=== PATIENT | male | born 1985 | race American Indian/Alaskan Native ===

== ENCOUNTER 2019-09-05 15:53 | Emergency (ER) | payer BC ==
--- NOTE | 2019-09-05 16:13 | Emergency Department Report ---
Blank Doc - Documentation Documentation: 34-year-old male that presents with "feeling weird" with abnormal palpations. This initial assessment/diagnostic orders/clinical plan/treatment(s) is/are subject to change based on patient's health status, clinical progression and re- assessment by fellow clinical providers in the ED. Further treatment and workup at subsequent clinical providers discretion. Patient/guardians urged not to elope from the ED as their condition may be serious if not clinically assessed and managed. Initial orders include: 1- Patient sent to MAIN ED for further evaluation and treatment 2- UA 3- labs 4- EKG
[2019-09-05 16:31] LABS: Basophils # (Auto) 0.1 K/mm3 (0.0-0.1); Basophils % (Auto) 0.8 % (0.0-1.8); Eosinophils # (Auto) 0.1 K/mm3 (0.0-0.4); Hematocrit 47.6 % (35.5-45.6); Hemoglobin 16.7 gm/dl (11.8-15.2); Lymphocytes # (Auto) 2.9 K/mm3 (1.2-5.4); Lymphocytes % (Auto) 42.4 % (13.4-35.0); Mean Corpuscular HGB Conc 35 % (32-34); Mean Corpuscular Volume 92 fl (84-94); Monocytes # (Auto) 0.5 K/mm3 (0.0-0.8); Monocytes % (Auto) 7.9 % (0.0-7.3); Platelet Count 248 K/mm3 (140-440); Red Blood Count 5.16 M/mm3 (3.65-5.03); Red Cell Distribution Width 12.7 % (13.2-15.2)
[2019-09-05] MEDS ORDERED: SODIUM CHLORIDE 0.9% 1000 ML 1,000 ML IV ONE ×2 (16:36→17:18)
[2019-09-05 16:52] LABS: Alanine Aminotransferase 30 units/L (7-56); Albumin 4.9 g/dL (3.9-5); BUN/Creatinine Ratio 14; Blood Urea Nitrogen 14 mg/dL (9-20); Hemolysis Index 27
--- NOTE | 2019-09-05 16:55 | Emergency Department Report ---
<VICKI HU - Last Filed: 09/05/19 16:50> ED Chest Pain HPI - General Chief Complaint: Chest Pain Stated Complaint: CHEST TIGHTNESS Time Seen by Provider: 09/05/19 16:11 Source: patient Mode of arrival: Ambulatory Limitations: No Limitations - History of Present Illness Initial Comments: 34-year-old -[place] male presents to the emergency room for chest tightnes and palpitations 2 hours prior to arrival. Patient reports that he was laying down when he started to have some discomfort. Patient denies any past medical history. Patient denies any pain but states that he does have a headache on the left side of his head but no chest pain just palpitations and chest feels tight. He does admit to some left arm feeling weaker. He denies any nausea vomiting. Admits to vision changes, lightheadedness and dizziness. Patient reports that he smokes hookah but denies any weed that he has smoked. Patient does admit to eating some cookies that maybe laced with THC. Patient does admit to drinking daily tequila after work. Comes in with a blood pressure of 146/92 pulse rate of 135 respirations are 22, 98.0 96% on room air. Onset/Timin -: hour(s) Onset: during rest Pain Location: other (chest tidgtness) Severity scale (0 -10): 6 Quality: tightness Consistency: intermittent Improves With: nothing Worsens With: nothing re: denies: nausea, vomting, diaphoresis, dyspnea, sense of impending doom Other Symptoms: palpitations. denies: cough, fever, syncope, rash, acid taste in mouth, leg swelling, burping, other Treatments Prior to Arrival: none Aspirin use within the Past 7 Days: (0) No - Related Data Previous Rx's Medication Instructions Recorded Last Taken Type metFORMIN [Glucophage] 500 mg PO BID 30 Days #60 tablet 09/05/19 Unknown Rx Allergies Allergy/AdvReac Type Severity Reaction Status Date / Time No Known Allergies Allergy Verified 09/05/19 17:04 Heart Score - HEART Score History: Slightly suspicious EKG: Non-specific Age: < 45 Risk factors: 1-2 risk factors ED Past Medical Hx - Past Medical History Previous Medical History?: No Hx Hypertension: Yes Hx Diabetes: Yes (untreated) - Surgical History Past Surgical History?: No - Social History Smoking Status: Never Smoker Substance Use Type: Alcohol - Medications Home Medications: Home Medications Medication Instructions Recorded Confirmed Last Taken Type metFORMIN [Glucophage] 500 mg PO BID 30 Days #60 tablet 09/05/19 Unknown Rx ED Physical Exam - General Limitations: No Limitations ASHU score - Ashu Score Age > 65: (0) No Aspirin use within the Past 7 Days: (0) No 3 or more CAD Risk Factors: (0) No 2 or more Angina events in past 24 hrs: (0) No Known CAD with more than 50% Stenosis: (0) No Elevated Cardiac Markers: (0) No ST Deviation Greater than 0.5mm: (0) No ASHU Score: 0 ED Medical Decision Making - Lab Data Result diagrams: 09/05/19 16:16 - EKG Data EKG shows normal: sinus rhythm (tachy), axis (normal), QRS complexes (prolonged), ST-T waves (no elevation or inverison) Rate: tachycardia - Radiology Data Radiology results: report reviewed Patient: SHA ROBERTSON MR#: [id number] : 1985 Acct:[id number] Age/Sex: 34 / M ADM Date: 09/05/19 Loc: ED Attending Dr: Ordering Physician: SEYMOUR SHAY NP Date of Service: 09/05/19 Procedure(s): XR chest routine 2V Accession Number(s): [id number] cc: SEYMOUR SHAY NP Fluoro Time In Minutes: CHEST 2 VIEWS INDICATION / CLINICAL INFORMATION: Chest Pain. COMPARISON: None available. FINDINGS: SUPPORT DEVICES: None. HEART / MEDIASTINUM: No significant abnormality. LUNGS / PLEURA: No significant pulmonary or pleural abnormality. No pneumothorax. ADDITIONAL FINDINGS: No significant additional findings. IMPRESSION: 1. No acute finding. Signer Name: Cabrera Pantoja MD Signed: 09/05/2019 4:59 PM Workstation Name: [id number] Transcribed By: TEJ Dictated By: Cabrera Pantoja MD Electronically Authenticated By: Cabrera Pantoja MD Signed Date/Time: 09/05/191658 DD/ 57 TD/TT: - Medical Decision Making 34-year-old -[place] male presents to the emergency room for chest tightnes and palpitations 2 hours prior to arrival. Patient reports that he was laying down when he started to have some discomfort. Patient denies any past medical history. Patient denies any pain but states that he does have a h eadache on the left side of his head but no chest pain just palpitations and chest feels tight. He does admit to some left arm feeling weaker. He denies any nausea vomiting. Admits to vision changes, lightheadedness and dizziness. Patient reports that he smokes hookah but denies any weed that he has smoked. Patient does admit to eating some cookies that maybe laced with THC. Patient does admit to drinking daily tequila after work. Comes in with a blood pressure of 146/92 pulse rate of 135 respirations are 22, 98.0 96% on room air. ED Disposition Clinical Impression: Palpitations, Marijuana use, Acute hyperglycemia Disposition: DC-01 TO HOME OR SELFCARE Condition: Stable Instructions: Diabetes Mellitus Type 2 in Adults (ED) Prescriptions: metFORMIN [Glucophage] 500 mg PO BID 30 Days #60 tablet Referrals: DUDLEY GARCIA MD [Staff Physician] - 3-5 Days <SAMM RANGEL - Last Filed: 09/05/19 19:49> Heart Score - HEART Score History: Slightly suspicious EKG: Normal Age: < 45 Risk factors: No known risk factors Troponin: < normal limit HEART Score: 0 ED Review of Systems ROS: Stated complaint: CHEST TIGHTNESS Other details as noted in HPI ED Course Vital Signs 09/05/19 09/05/19 16:10 16:47 Temperature 98 F Pulse Rate 135 H 135 H Respiratory 18 16 Rate Blood Pressure 146/92 Blood Pressure 148/95 [Left] O2 Sat by Pulse 96 97 Oximetry ED Medical Decision Making - Lab Data Result diagrams: 09/05/19 16:16 09/05/19 16:16 Laboratory Results - last 24 hr 09/05/19 09/05/19 09/05/19 16:16 16:16 16:16 WBC 6.7 RBC 5.16 H Hgb 16.7 H Hct 47.6 H MCV 92 MCH 32 MCHC 35 H RDW 12.7 L Plt Count 248 Lymph % (Auto) 42.4 H [place] % (Auto) 7.9 H Eos % (Auto) 2.0 Baso % (Auto) 0.8 Lymph # 2.9 [place] # 0.5 Eos # 0.1 Baso # 0.1 Seg Neutrophils % 46.9 Seg Neutrophils # 3.2 PT 12.1 L INR 0.90 APTT < 24.2 L Sodium 136 L Potassium 4.1 Chloride 96.6 L Carbon Dioxide 22 Anion Gap 22 BUN 14 Creatinine 1.0 Estimated GFR > 60 BUN/Creatinine Ratio 14 Glucose 488 H Hemoglobin A1c Calcium 10.0 Total Bilirubin 0.40 AST 21 ALT 30 Alkaline Phosphatase 66 Troponin T < 0.010 Total Protein 8.2 Albumin 4.9 Albumin/Globulin Ratio 1.5 TSH Urine Color Urine Turbidity Urine pH Ur Specific [place] Urine Protein Urine Glucose (UA) Urine Ketones Urine Blood Urine Nitrite Urine Bilirubin Urine Urobilinogen Ur Leukocyte Esterase Urine WBC (Auto) Urine RBC (Auto) U Epithel Cells (Auto) Urine Opiates Screen Urine Methadone Screen Ur Barbiturates Screen Ur Phencyclidine Scrn Ur Amphetamines Screen U Benzodiazepines Scrn Urine Cocaine Screen U Marijuana (THC) Screen Drugs of Abuse Note 09/05/19 09/05/19 09/05/19 16:16 Unknown Unknown WBC RBC Hgb Hct MCV MCH MCHC RDW Plt Count Lymph % (Auto) [place] % (Auto) Eos % (Auto) Baso % (Auto) Lymph # [place] # Eos # Baso # Seg Neutrophils % Seg Neutrophils # PT INR APTT Sodium Potassium Chloride Carbon Dioxide Anion Gap BUN Creatinine Estimated GFR BUN/Creatinine Ratio Glucose Hemoglobin A1c Calcium Total Bilirubin AST ALT Alkaline Phosphatase Troponin T Total Protein Albumin Albumin/Globulin Ratio TSH 0.762 Urine Color Straw Urine Turbidity Clear Urine pH 5.0 Ur Specific [place] 1.035 H Urine Protein 30 mg/dl Urine Glucose (UA) >500 Urine Ketones Trace Urine Blood Negative Urine Nitrite Negative Urine Bilirubin Negative Urine Urobilinogen < 2.0 Ur Leukocyte Esterase Negative Urine WBC (Auto) 1.0 Urine RBC (Auto) 2.0 U Epithel Cells (Auto) < 1.0 Urine Opiates Screen Presumptive negative Urine Methadone Screen Presumptive negative Ur Barbiturates Screen Presumptive negative Ur Phencyclidine Scrn Presumptive negative Ur Amphetamines Screen Presumptive negative U Benzodiazepines Scrn Presumptive negative Urine Cocaine Screen Presumptive negative U Marijuana (THC) Screen Presumptive positive Drugs of Abuse Note Disclamer 09/05/19 Unknown WBC RBC Hgb Hct MCV MCH MCHC RDW Plt Count Lymph % (Auto) [place] % (Auto) Eos % (Auto) Baso % (Auto) Lymph # [place] # Eos # Baso # Seg Neutrophils % Seg Neutrophils # PT INR APTT Sodium Potassium Chloride Carbon Dioxide Anion Gap BUN Creatinine Estimated GFR BUN/Creatinine Ratio Glucose Hemoglobin A1c 10.8 H Calcium Total Bilirubin AST ALT Alkaline Phosphatase Troponin T Total Protein Albumin Albumin/Globulin Ratio TSH Urine Color Urine Turbidity Urine pH Ur Specific [place] Urine Protein Urine Glucose (UA) Urine Ketones Urine Blood Urine Nitrite Urine Bilirubin Urine Urobilinogen Ur Leukocyte Esterase Urine WBC (Auto) Urine RBC (Auto) U Epithel Cells (Auto) Urine Opiates Screen Urine Methadone Screen Ur Barbiturates Screen Ur Phencyclidine Scrn Ur Amphetamines Screen U Benzodiazepines Scrn Urine Cocaine Screen U Marijuana (THC) Screen Drugs of Abuse Note - Medical Decision Making I personally evaluated Mr. Robertson who presents with palpitations after ingesting marijuana. His heart rate initially upon arrival EKG reveals sinus tachycardia rate 150 bpm EKG my personal interpretation normal axis no ST elevation no signs of ischemia prolonged QT interval I provided extensive education regarding diabetes mellitus with him and his signifcant other. He was informed in the past that he indeed had diabetes mellitus. However he "did not believe the diagnosis." Currently no evidence of diabetes complication today such as diabetic ketoacidosis. He received IV hydration. I have prescribed metformin. I have informed him of the adverse effects of metformin including stomach upset and diarrhea. I have referred him to the outpatient physician medical cost consultant. After observation and hydration, Repeat heart rate 75 beats a minute I reviewed labs which revealed volume contraction, hyperglycemia +UDS for THC, normal troponin. normal TSH currently symptom free, I do not suspect pulmonary embolism, sepsis or other causes of potential tachycardia other than marijuana ingestion and dehydration Critical care attestation.: If time is entered above; I have spent that time in minutes in the direct care of this critically ill patient, excluding procedure time. ED Disposition Is pt being admited?: No Does the pt Need Aspirin: No
[2019-09-05 16:59] LABS: Color,Urine Straw (Yellow)
[2019-09-05 17:00] LABS: Bilirubin,Urine Negative (Negative)
[2019-09-05 17:01] LABS: Blood,Urine Negative (Negative)
[2019-09-05 17:03] LABS: Urobilinogen,Urine < 2.0 mg/dL (<2.0)
--- NOTE | 2019-09-05 17:03 | XRay Report ---
CHEST 2 VIEWS INDICATION / CLINICAL INFORMATION: Chest Pain. COMPARISON: None available. FINDINGS: SUPPORT DEVICES: None. HEART / MEDIASTINUM: No significant abnormality. LUNGS / PLEURA: No significant pulmonary or pleural abnormality. No pneumothorax. ADDITIONAL FINDINGS: No significant additional findings. IMPRESSION: 1. No acute finding. Signer Name: Cabrera Pantoja MD Signed: 09/05/2019 4:59 PM Workstation Name: [id number]
[2019-09-05 17:12] LABS: Amphetamine Screen,Urine PRESUMPTIVE NEGATIVE; Benzodiazepines Screen,Urine PRESUMPTIVE NEGATIVE; Cocaine Screen,Urine PRESUMPTIVE NEGATIVE; Methadone Screen,Urine PRESUMPTIVE NEGATIVE; Opiate Screen,Urine PRESUMPTIVE NEGATIVE
[2019-09-05 17:32] LABS: Cannabinoid Screen,Urine PRESUMPTIVE POSITIVE
[2019-09-05 17:35] LABS: Partial Thromboplastin Time < 24.2 Sec. (24.2-36.6)
[2019-09-05 19:41] VITALS: BP 123/77
== END 2019-09-05 21:06 | disposition home or self-care (01) ==
LOC: ED 15:53
DX: E11.65 Type 2 diabetes mellitus with hyperglycemia (principal); R07.89 Other chest pain; R00.2 Palpitations; F12.10 Cannabis abuse, uncomplicated; I10 Essential (primary) hypertension; Z79.84 Long term (current) use of oral hypoglycemic drugs
CPT/HCPCS: 36415; 71046; 80053; 80307; 81001; 83036; 84443; 84484; 85025; 85610; 85730; 93005; 93010; 96360; 96361; 99284; J7030